=== PATIENT | female | born 1965 | race Caucasian/White ===

== ENCOUNTER 2017-06-09 08:05 | Day surgery (SDC) | payer OTHER ==
[~2017-06-09] VITALS: Ht 149.9 cm; Wt 59.6 kg
[2017-06-09 08:35] VITALS: Ht 149.9 cm; Wt 59.6 kg
[2017-06-09] MEDS ORDERED: LIDOCAINE 4% SOLUTION 50 ML BTL ONE (09:02)
[2017-06-09 09:22] VITALS: BP 128/93; PULSE 105; RESP 16
--- NOTE | 2017-06-09 10:00 | OPPN ---
Date/Time of Note Date/Time of Note DATE: 06/09/17 TIME: 09:55 Proc Note GI Procedure date: Jun 09, 2017 Pre-procedure Diagnosis heart bburn screening coolonoscopy Post-procedure Diagnosis gerd diverticulosis Operation Performed egd colonoscopy Surgeon: TOLU FRENCH MD Anesthesia Type: moderate sedation Estimated blood loss: none Transfusion Required: no Specimen: none Grafts/Implants: none Grafts/Implants none Tubes/Drains none Complications: no Complications none Pt Condition post procedure: stable Disposition: other Indications heart burn r/o colon polyps Operative\Procedure Findings mild gerd fundal polyp diverticulosis Procedure Description 1]mild vgerd 2] fundal polyp 3]diverticulosis TOLU FRENCH MD Jun 09, 2017 10:00
[2017-06-09] MEDS ORDERED: FENTAnyl 50 MCG/ML VIAL ONE (10:06)
[2017-06-09] MEDS ORDERED: MIDAZOLAM 1 MG/ML 2 ML INJ ONE ×2 (10:06)
[2017-06-09 10:17] VITALS: BP 116/67; RESP 18
--- NOTE | 2017-06-09 10:59 | GILP ---
DATE OF PROCEDURE: 06/09/2017 PROCEDURE PERFORMED: Screening colonoscopy. Rule out colon polyps. POSTOPERATIVE DIAGNOSIS: Moderate degree of diverticulosis, scattered all over the colon. There is no bleeding. They are small in size. Minimal external hemorrhoids. DESCRIPTION OF PROCEDURE: After the informed written consent was obtained, the patient was asked to lie on the left lateral side. 4 mg of Versed and 75 mcg of fentanyl was given as intravenous anesthesia. When the patient became somnolent, Olympus video colonoscope was introduced into the rectum and scope was advanced all the way to the cecum. Moderate degree of diverticulosis noted all over the colon with no evidence of any inflammatory process. No neoplasm noted. The diverticula showed no bleeding. They are small in size. The scope at this time was withdrawn from the cecum, careful evaluation was carried out. On the way out, retroflexion was performed. No internal hemorrhoids were noted, but when the scope was withdrawn, minimal external hemorrhoids were noted and the procedure was terminated. PLAN: Recommend a repeat colonoscopy in 10 years. Dictated By: Grant Jorge MD /[email or web address]/juan /Document#: [id number] ; Dr. Gabrielle Keller
--- NOTE | 2017-06-09 17:51 | GILP ---
DATE OF PROCEDURE: 06/09/2017 PROCEDURE PERFORMED: Esophagogastroduodenoscopy. PREOPERATIVE DIAGNOSIS: Patient presenting with history of chronic heartburn, unresponsive to routine therapy. Procedure is performed to rule out peptic ulcer disease, esophagitis. POSTOPERATIVE DIAGNOSES: 1. Mild reflux esophagitis. 2. Gastric fundal polyp. DESCRIPTION OF PROCEDURE: After the informed written consent was obtained, patient was asked to lie on the left lateral side, and 4 mg Versed and 50 mcg of fentanyl was given as intravenous anesthesia. When the patient became somnolent, Olympus video upper endoscope was introduced into the oropharynx and then into the esophagus. Esophagus showed evidence of a mild reflux esophagitis, with no evidence of ulcer disease. Scope at this time was advanced into the stomach, and the stomach appeared normal. Fundus of the stomach showed evidence of a 3-mm subcutaneous submucosal nodule. This was biopsied. Biopsy was also done from the antrum, the lesser curvature and the fundus to rule out H. pylori infection. The duodenum appeared normal up to the end of the 3rd portion. The scope at this time was withdrawn. No additional abnormality detected, and the procedure was terminated. PLAN: Recommend omeprazole 40 mg every day in the morning for 2 months. Wait for the pathology report. Dictated By: Grant Jorge MD /[email or web address]/kwasi /Document#: [id number] CC: Grant Jorge MD; MILAD SOFIA MD, [place];*[facility]*
== END 2017-06-09 12:03 | disposition home or self-care (01) ==
LOC: GIL 08:05
PROVIDERS: ATTEND Internal Medicine Gastroenterology
DX: Z12.11 Encounter for screening for malignant neoplasm of colon (principal); K64.4 Residual hemorrhoidal skin tags; K57.90 Diverticulosis of intestine, part unspecified, without perforation or abscess without bleeding; K21.0 Gastro-esophageal reflux disease with esophagitis; K31.7 Polyp of stomach and duodenum
CPT/HCPCS: 43239; 45378; 88305; 88312; J2250; J3010